=== PATIENT | female | born 1995 ===

== ENCOUNTER 2018-09-02 12:58 | Inpatient (IN) ==
[2018-09-02 13:59] LABS: Apearance,Urine CLEAR (Clear); Bacteria,Urine Occasional /HPF (Few); Bilirubin,Urine Negative (Negative); Blood, Urine Negative (Negative); Glucose,Urine (UA) Negative (Negative); Ketones,Urine Negative (Negative); Mucus,Urine Occasional /LPF (Occasional); Nitrite,Urine Negative (Negative); Protein,Urine Negative; RBC,Urine <1 /HPF (0-4); Squamous Epithelial Cell,Urine Occasional /HPF (0-10); Urine Color Yellow (Yellow); Urine Specific Gravity 1.012 (1.001-1.035); WBC,Urine 1 /HPF (0-6)
[2018-09-02] MEDS ORDERED: TERBUTALINE 1 MG/1 ML VIAL SUBCUT PRN (15:02)
[2018-09-02] MEDS ORDERED: ONDANSETRON 4 MG/2 ML VIAL IV PRN (16:32)
[2018-09-02] MEDS ORDERED: MEPERIDINE 50 MG/1 ML VIAL IM PRN (16:32)
[2018-09-02] MEDS ORDERED: BUTORPHANOL 2 MG/ML VIAL IV PRN (16:32)
[2018-09-02] MEDS ORDERED: CITRIC ACID/SODIUM CITRATE 30 ML UDCUP PO ONE (16:37)
[2018-09-02] MEDS ORDERED: LACTATED RINGERS 250 ML IV PRN (16:37)
[2018-09-02] MEDS ORDERED: LACTATED RINGERS 1,000 ML IV ONE (16:37)
[2018-09-02] MEDS ORDERED: diphenhydrAMINE 50 MG/1 ML VIAL IV PRN ×2 (16:37)
[2018-09-02] MEDS ORDERED: NALOXONE 0.4 MG/ML VIAL IV PRN (16:37)
[2018-09-02] MEDS ORDERED: PROMETHAZINE 25 MG/1 ML VIAL IM ONE (16:37)
[2018-09-02] MEDS ORDERED: FAMOTIDINE 20 MG/2 ML VIAL IV ONE (16:37)
[2018-09-02] MEDS ORDERED: hydrOXYzine HCL 25 MG/1 ML VIAL IM PRN (16:37)
[2018-09-02] MEDS ORDERED: ePHEDrine 50 MG/ML AMP IV PRN (16:37)
[2018-09-02] MEDS ORDERED: fentaNYL 2 MCG/ROPIV 0.2% EPID 100 ML EPIDURAL SCH (17:00)
[2018-09-02] MEDS ORDERED: AMPICILLIN INJ 2,000 MG in SODIUM CHLORIDE 0.9% 100 ML IV ONE (17:00)
[2018-09-02] MEDS ORDERED: LACTATED RINGERS 1,000 ML IV SCH (17:00)
[2018-09-02 17:11] LABS: Basophils % 0.1 % (0.0-0.8); Eosinophils % 0.5 % (0.00-10.9); Hematocrit 30.8 VOL% (35.7-47.0); Hemoglobin 9.5 GM/DL (12.0-16.0); Immature Granulocytes % 0.6 %; Immature Granulocytes Absolute 0.05 #; Lymphocytes # 2.1 10*3/uL (1.4-4.0); Lymphocytes % 23.4 % (21.3-54.2); Mean Corpuscular HGB Conc 30.8 GM/DL (32-36); Mean Corpuscular Hemoglobin 27 PG (27-34); Mean Platelet Volume 10.3 FL (9.6-12.0); Monocytes # 0.8 10*3/uL (0.11-0.8); Monocytes % 8.7 % (1.7-12.7); Neutrophils # 5.8 10*3/uL (1.4-7.4); Neutrophils % 66.7 % (38.7-73.9); Platelet Count 201 T/CUMM (130-400); Red Blood Count 3.58 MC/CUMM (3.8-5.5); Red Cell Distribution Width 13.4 % (9.3-17.3); White Blood Count 8.8 T/CUMM (4-12)
[2018-09-02 17:32] LABS: Alanine Aminotransferase 23 U/L (13-56); Albumin 2.1 G/DL (3.4-5.0); Alkaline Phosphatase 268 U/L (45-117); Aspartate Amino Transferase 20 U/L (0-37); Bilirubin,Total < 0.39 MG/DL (0.2-1.0); Blood Urea Nitrogen 3 MG/DL (7-18); Glucose 89 MG/DL (74-106); Osmolality,Calculated 274.4 MOS/KG (273-304); Potassium 3.1 MMOL/L (3.5-5.1); Sodium 140 MMOL/L (136-145); Total Protein 6.5 G/DL (6.4-8.3)
[2018-09-02] MEDS ORDERED: MEPERIDINE 50 MG/1 ML VIAL IV PRN (22:50)
[2018-09-02] MEDS ORDERED: AMPICILLIN INJ 1,000 MG in SODIUM CHLORIDE 0.9% 100 ML IV SCH (23:00)
[2018-09-02] MEDS ORDERED: miSOPROStol 200 MCG TABLET ONE (23:32)
[2018-09-02] MEDS ORDERED: LIDOCAINE 1% 50 ML VIAL ONE (23:32)
[2018-09-02] MEDS ORDERED: CARBOPROST TROMETHAMINE 250 MCG/ML AMP IM ONE (23:33)
[2018-09-02] MEDS ORDERED: METHYLERGONOVINE 0.2 MG/1 ML AMP ONE (23:33)
[2018-09-02] MEDS ORDERED: OXYTOCIN/LR 20 UNIT/1,000 ML BAG IV ONE (23:33)
[2018-09-02 23:54] LABS: Cord Arterial Blood HCO3 22.4 MMOL/L
[2018-09-02 23:57] LABS: Cord Venous Blood HCO3 23.2 MMOL/L; Cord Venous Blood PCO2 36.4 MMHG; Cord Venous Blood PO2 28.7
[2018-09-03] MEDS ORDERED: BENZOCAINE 20%/MENTHOL 0.5% SPRAY 56 GM CAN TOP PRN (00:04)
[2018-09-03] MEDS ORDERED: ONDANSETRON 4 MG/2 ML VIAL IV PRN (00:04)
[2018-09-03] MEDS ORDERED: DIPH/TET/ACEL PERT BOOSTER VACCINE 0.5 ML VIAL IM ONE (00:04)
[2018-09-03] MEDS ORDERED: BISACODYL 10 MG SUPP RECTAL PRN (00:04)
[2018-09-03] MEDS ORDERED: RHO(D) IMMUNE GLOBULIN 300 MCG SYRINGE IM ONE (00:04)
[2018-09-03] MEDS ORDERED: WITCH HAZEL PADS 100/JAR TOP PRN (00:04)
[2018-09-03] MEDS ORDERED: OXYTOCIN/LR 20 UNIT/1,000 ML BAG IV ONE (00:04)
[2018-09-03] MEDS ORDERED: ACETAMINOPHEN 325 MG TABLET PO PRN (00:04)
[2018-09-03] MEDS ORDERED: MEASLES/MUMPS/RUBELLA VACCINE 0.5 ML VIAL SUBCUT ONE (00:04)
[2018-09-03] MEDS ORDERED: HYDROCORTISONE 2.5% RECTAL CREAM 30 GM TUBE TOP PRN (00:04)
[2018-09-03] MEDS ORDERED: oxyCODONE/ACETAMINOPHEN 5-325 MG TABLET PO PRN ×2 (00:04)
[2018-09-03] MEDS ORDERED: LANOLIN 50% CREAM 0.3 OZ TUBE TOP PRN (00:04)
[2018-09-03 03:58] LABS: Basophils % 0.1 % (0.0-0.8); Eosinophils % 0.2 % (0.00-10.9); Hematocrit 30.3 VOL% (35.7-47.0); Hemoglobin 9.7 GM/DL (12.0-16.0); Immature Granulocytes % 0.4 %; Immature Granulocytes Absolute 0.06 #; Lymphocytes # 1.9 10*3/uL (1.4-4.0); Lymphocytes % 13.6 % (21.3-54.2); Mean Corpuscular Hemoglobin 27 PG (27-34); Mean Corpuscular Volume 83.7 FL (87-102); Mean Platelet Volume 10.1 FL (9.6-12.0); Monocytes # 0.8 10*3/uL (0.11-0.8); Monocytes % 5.6 % (1.7-12.7); Neutrophils # 11.1 10*3/uL (1.4-7.4); Neutrophils % 80.1 % (38.7-73.9); Platelet Count 217 T/CUMM (130-400); Red Blood Count 3.62 MC/CUMM (3.8-5.5); Red Cell Distribution Width 13.4 % (9.3-17.3); White Blood Count 13.8 T/CUMM (4-12)
[2018-09-03] MEDS: IBUPROFEN 800 MG TABLET PO PRN ×2 (07:48→15:27)
[2018-09-03] MEDS: DOCUSATE SODIUM 100 MG CAPSULE PO SCH ×2 (10:39→21:20)
[2018-09-04 07:07] VITALS: BP 110/56
[2018-09-04] MEDS ORDERED: FERROUS SULFATE 325 MG TABLET PO SCH (09:00)
[2018-09-04] MEDS: DOCUSATE SODIUM 100 MG CAPSULE PO SCH (09:37)
== END 2018-09-04 12:25 | disposition home or self-care (01) | DRG 560 ==
LOC: N.LDOUT 12:58 → N.LD 13:00 → N.OB 09-03 11:55
PROVIDERS: ADMIT Pediatrics Neonatal-Perinatal Medicine; ATTEND Obstetrics & Gynecology

== ENCOUNTER 2020-01-12 10:27 | Inpatient (IN) ==
[2020-01-12] MEDS ORDERED: ONDANSETRON 4 MG/2 ML VIAL IV PRN (11:08)
[2020-01-12 11:27] LABS: Basophils % 0.1 % (0.0-0.8); Eosinophils # 0.1 10*3/uL (0.0-0.87); Eosinophils % 1.4 % (0.00-10.9); Hematocrit 31.9 VOL% (35.7-47.0); Hemoglobin 10.2 GM/DL (12.0-16.0); Immature Granulocytes % 0.4 %; Immature Granulocytes Absolute 0.04 #; Lymphocytes # 1.9 10*3/uL (1.4-4.0); Lymphocytes % 20.3 % (21.3-54.2); Mean Corpuscular Volume 84.6 FL (87-102); Mean Platelet Volume 9.9 FL (9.6-12.0); Monocytes % 6.5 % (1.7-12.7); Neutrophils % 71.3 % (38.7-73.9); Platelet Count 158 T/CUMM (130-400); Red Blood Count 3.77 MC/CUMM (3.8-5.5); White Blood Count 9.6 T/CUMM (4-12)
[2020-01-12] MEDS ORDERED: OXYTOCIN/LR 20 UNIT/1,000 ML BAG IV SCH (11:30)
[2020-01-12] MEDS ORDERED: LACTATED RINGERS 1,000 ML IV SCH (11:30)
[2020-01-12 11:55] LABS: Alanine Aminotransferase 19 U/L (13-56); Albumin 2.1 G/DL (3.4-5.0); Alkaline Phosphatase 340 U/L (45-117); Aspartate Amino Transferase 22 U/L (0-37); Bilirubin,Total < 0.39 MG/DL (0.2-1.0); Blood Urea Nitrogen 4 MG/DL (7-18); Calcium 7.9 MG/DL (8.5-10.1); Estimated Glom Filtration Rate 157 ML/MIN; Glucose 85 MG/DL (74-106); Osmolality,Calculated 272.5 MOS/KG (273-304); Total Protein 6.4 G/DL (6.4-8.3)
[2020-01-12] MEDS ORDERED: BUTORPHANOL 1 MG/ML VIAL IV PRN (12:28)
[2020-01-12] MEDS ORDERED: BUTORPHANOL 2 MG/ML VIAL IV PRN (12:28)
[2020-01-12] MEDS ORDERED: miSOPROStoL 200 MCG TABLET ONE (12:45)
[2020-01-12] MEDS ORDERED: TRANEXAMIC ACID 1,000 MG/10 ML VIAL ONE (12:45)
[2020-01-12] MEDS ORDERED: CARBOPROST TROMETHAMINE 250 MCG/ML AMP IM ONE (12:46)
[2020-01-12] MEDS ORDERED: METHYLERGONOVINE 0.2 MG/1 ML AMP ONE (12:46)
[2020-01-12] MEDS ORDERED: LIDOCAINE 1% 50 ML VIAL ONE (13:20)
[2020-01-12 15:28] LABS: Cord Arterial Blood HCO3 20.8 MMOL/L
[2020-01-12 15:32] LABS: Cord Venous Blood HCO3 22.6 MMOL/L; Cord Venous Blood PCO2 40.3 MMHG; Cord Venous Blood PO2 35.2
[2020-01-12] MEDS ORDERED: IBUPROFEN 800 MG TABLET ONE (17:25)
[2020-01-12] MEDS: IBUPROFEN 800 MG TABLET PO PRN ×2 (17:25→23:06)
[2020-01-12] MEDS ORDERED: HYDROCORTISONE 2.5% RECTAL CREAM 30 GM TUBE TOP PRN (17:29)
[2020-01-12] MEDS ORDERED: LANOLIN 50% CREAM 0.3 OZ TUBE TOP PRN (17:29)
[2020-01-12] MEDS ORDERED: oxyCODONE/ACETAMINOPHEN 5-325 MG TABLET PO PRN ×2 (17:29)
[2020-01-12] MEDS ORDERED: WITCH HAZEL PADS 100/JAR TOP PRN (17:29)
[2020-01-12] MEDS ORDERED: BISACODYL 10 MG SUPP RECTAL PRN (17:29)
[2020-01-12] MEDS ORDERED: BENZOCAINE 20%/MENTHOL 0.5% SPRAY 56 GM CAN TOP PRN (17:29)
[2020-01-12] MEDS ORDERED: DIPH/TET/ACEL PERT BOOSTER VACCINE 0.5 ML VIAL IM ONE (17:29)
[2020-01-12] MEDS ORDERED: ACETAMINOPHEN 325 MG TABLET PO PRN (17:29)
[2020-01-12] MEDS: DOCUSATE SODIUM 100 MG CAPSULE PO SCH (22:32)
[2020-01-13 05:20] LABS: Basophils % 0.2 % (0.0-0.8); Eosinophils # 0.1 10*3/uL (0.0-0.87); Eosinophils % 1.3 % (0.00-10.9); Hematocrit 27.9 VOL% (35.7-47.0); Immature Granulocytes % 0.5 %; Immature Granulocytes Absolute 0.05 #; Lymphocytes # 2.4 10*3/uL (1.4-4.0); Lymphocytes % 24.9 % (21.3-54.2); Mean Corpuscular HGB Conc 32.3 GM/DL (32-36); Mean Corpuscular Volume 83.5 FL (87-102); Mean Platelet Volume 10.2 FL (9.6-12.0); Monocytes % 8.3 % (1.7-12.7); Neutrophils % 64.8 % (38.7-73.9); Platelet Count 142 T/CUMM (130-400); Red Blood Count 3.34 MC/CUMM (3.8-5.5); Red Cell Distribution Width 13.9 % (9.3-17.3); White Blood Count 9.6 T/CUMM (4-12)
[2020-01-13] MEDS: DOCUSATE SODIUM 100 MG CAPSULE PO SCH ×2 (09:02→20:49)
[2020-01-14] MEDS: IBUPROFEN 800 MG TABLET PO PRN (04:28)
[2020-01-14 08:28] VITALS: BP 122/76
[2020-01-14] MEDS: DOCUSATE SODIUM 100 MG CAPSULE PO SCH (08:48)
== END 2020-01-14 13:30 | disposition home or self-care (01) | DRG 560 ==
LOC: N.LD 10:27 → N.OB 17:23
PROVIDERS: ADMIT Obstetrics & Gynecology; ATTEND Obstetrics & Gynecology

== ENCOUNTER 2022-09-06 21:56 | Inpatient (IN) ==
[2022-09-06 22:37] LABS: Bacteria,Urine Occasional /HPF (Few); Bilirubin,Urine Negative (Negative); Blood, Urine Moderate mg/dL (Negative); Glucose,Urine (UA) Negative (Negative); Ketones,Urine Negative (Negative); Mucus,Urine Occasional /LPF (Occasional); Nitrite,Urine Negative (Negative); Protein,Urine Negative (Negative); RBC,Urine 2 /HPF (0-4); Squamous Epithelial Cell,Urine Occasional /HPF (0-10); Urine Appearance Clear (Clear); Urine Color Yellow (Yellow); Urine Specific Gravity 1.015 (1.001-1.035); Urine Urobilinogen 0.2 eU/dL (<2.0); Urine pH 7.5 (4.5-8.0)
[2022-09-06] MEDS ORDERED: TERBUTALINE 1 MG/1 ML VIAL SUBCUT ONE (23:12)
[2022-09-06] MEDS ORDERED: PROMETHAZINE 25 MG/1 ML VIAL IM ONE (23:12)
[2022-09-06] MEDS ORDERED: MEPERIDINE 50 MG/1 ML VIAL IM ONE (23:12)
[2022-09-06] MEDS ORDERED: LACTATED RINGERS 1,000 ML IV ONE (23:12)
[2022-09-07] MEDS ORDERED: LACTATED RINGERS 500 ML IV PRN (01:15)
[2022-09-07] MEDS ORDERED: BUTORPHANOL 2 MG/ML VIAL IV PRN (01:15)
[2022-09-07] MEDS ORDERED: CARBOPROST TROMETHAMINE 250 MCG/ML AMP IM PRN (01:15)
[2022-09-07] MEDS ORDERED: OXYTOCIN/LR 20 UNIT/1,000 ML BAG IV ONE ×2 (01:15→14:06)
[2022-09-07] MEDS ORDERED: miSOPROStoL 200 MCG TABLET RECTAL PRN (01:15)
[2022-09-07] MEDS ORDERED: METHYLERGONOVINE 0.2 MG/1 ML AMP IM PRN (01:15)
[2022-09-07] MEDS ORDERED: ONDANSETRON 4 MG/2 ML VIAL IV PRN (01:15)
[2022-09-07] MEDS ORDERED: TRANEXAMIC ACID 1,000 MG in SODIUM CHLORIDE 0.9% 100 ML IV PRN (01:15)
[2022-09-07] MEDS: LACTATED RINGERS 1,000 ML IV SCH ×2 (01:36→11:09)
[2022-09-07] MEDS: CLINDAMYCIN INJ 900 MG/50 ML PREMIX IV SCH ×2 (01:36→09:22)
[2022-09-07 01:53] LABS: Basophils % 0.1 % (0.0-0.8); Eosinophils % 0.4 % (0.00-10.9); Hematocrit 32.7 VOL% (35.7-47.0); Hemoglobin 10.6 GM/DL (12.0-16.0); Immature Granulocytes % 0.4 %; Immature Granulocytes Absolute 0.03 #; Lymphocytes # 2.2 10*3/uL (1.4-4.0); Lymphocytes % 27.7 % (21.3-54.2); Mean Corpuscular HGB Conc 32.4 GM/DL (32-36); Mean Corpuscular Volume 88.1 FL (87-102); Mean Platelet Volume 10.2 FL (9.6-12.0); Monocytes # 0.5 10*3/uL (0.11-0.8); Monocytes % 5.8 % (1.7-12.7); Neutrophils % 65.6 % (38.7-73.9); Platelet Count 145 T/CUMM (130-400); Red Blood Count 3.71 MC/CUMM (3.8-5.5); Red Cell Distribution Width 14.5 % (9.3-17.3); White Blood Count 7.99 T/CUMM (4-12)
[2022-09-07] MEDS ORDERED: OXYTOCIN/LR 30 UNIT/1,000 ML BAG IV ONE (02:00)
[2022-09-07 02:11] LABS: Albumin 2.3 G/DL (3.4-5.0); Bilirubin,Total 0.4 MG/DL (0.20-1.00); Calcium 8.2 MG/DL (8.5-10.1); Osmolality,Calculated 270.7 MOS/KG (273-304); Total Protein 6.8 G/DL (6.4-8.2)
[2022-09-07] MEDS ORDERED: diphenhydrAMINE 50 MG/1 ML VIAL IV ONE (02:45)
[2022-09-07 06:58] LABS: HIV Antigen/Antibody Result Nonreactive (Nonreactive); Hepatitis B Surface Ag Quant < 0.10 Index; Hepatitis B Surface Ag Result Non-Reactive (NonReactive); Rubella Antibody IgG Result Reactive (NonReactive)
[2022-09-07] MEDS ORDERED: OXYTOCIN/LR 20 UNIT/1,000 ML BAG IV SCH (09:00)
[2022-09-07 11:53] LABS: Cord Arterial Blood HCO3 19.4 MMOL/L
[2022-09-07 11:55] LABS: Cord Venous Blood HCO3 21.7 MMOL/L; Cord Venous Blood PCO2 41.6 MMHG; Cord Venous Blood PO2 29.1
[2022-09-07] MEDS ORDERED: WITCH HAZEL PADS 100/JAR TOP PRN (14:06)
[2022-09-07] MEDS ORDERED: RHO(D) IMMUNE GLOBULIN 300 MCG SYRINGE IM ONE (14:06)
[2022-09-07] MEDS ORDERED: ACETAMINOPHEN 325 MG TABLET PO PRN (14:06)
[2022-09-07] MEDS ORDERED: HYDROCORTISONE 2.5% RECTAL CREAM 30 GM TUBE TOP PRN (14:06)
[2022-09-07] MEDS ORDERED: DIPH/TET/ACEL PERT BOOSTER VACCINE 0.5 ML VIAL IM ONE (14:06)
[2022-09-07] MEDS ORDERED: oxyCODONE/ACETAMINOPHEN 5-325 MG TABLET PO PRN ×2 (14:06)
[2022-09-07] MEDS ORDERED: BISACODYL 10 MG SUPP RECTAL PRN (14:06)
[2022-09-07] MEDS ORDERED: BENZOCAINE 20%/MENTHOL 0.5% SPRAY 56 GM CAN TOP PRN (14:06)
[2022-09-07] MEDS ORDERED: MEASLES/MUMPS/RUBELLA VACCINE 0.5 ML VIAL SUBCUT ONE (14:06)
[2022-09-07] MEDS ORDERED: LANOLIN 50% CREAM 0.3 OZ TUBE TOP PRN (14:06)
[2022-09-07] MEDS: IBUPROFEN 800 MG TABLET PO PRN (18:59)
[2022-09-07] MEDS: DOCUSATE SODIUM 100 MG CAPSULE PO SCH (20:49)
[2022-09-08] MEDS ORDERED: diphenhydrAMINE CAP 25 MG CAPSULE PO PRN (02:32)
[2022-09-08 05:51] LABS: Basophils % 0.2 % (0.0-0.8); Eosinophils # 0.1 10*3/uL (0.0-0.87); Eosinophils % 1.4 % (0.00-10.9); Hemoglobin 8.5 GM/DL (12.0-16.0); Immature Granulocytes % 0.5 %; Immature Granulocytes Absolute 0.03 #; Lymphocytes # 2.2 10*3/uL (1.4-4.0); Lymphocytes % 33.4 % (21.3-54.2); Mean Corpuscular HGB Conc 32.7 GM/DL (32-36); Mean Platelet Volume 10.4 FL (9.6-12.0); Monocytes # 0.4 10*3/uL (0.11-0.8); Monocytes % 6.1 % (1.7-12.7); Neutrophils % 58.4 % (38.7-73.9); Platelet Count 151 T/CUMM (130-400); Red Blood Count 2.92 MC/CUMM (3.8-5.5); Red Cell Distribution Width 14.5 % (9.3-17.3); White Blood Count 6.61 T/CUMM (4-12)
[2022-09-08] MEDS: DOCUSATE SODIUM 100 MG CAPSULE PO SCH ×2 (09:43→20:05)
[2022-09-08] MEDS: IBUPROFEN 800 MG TABLET PO PRN ×2 (12:53→20:05)
[2022-09-08] MEDS: POTASSIUM CHLORIDE 20 MEQ TABLET PO PRN ×3 (20:05→23:47)
[2022-09-09] MEDS: POTASSIUM CHLORIDE 20 MEQ TABLET PO PRN (01:49)
[2022-09-09 08:05] VITALS: BP 122/67
[2022-09-09] MEDS: DOCUSATE SODIUM 100 MG CAPSULE PO SCH (08:58)
[2022-09-09] MEDS ORDERED: NITROFURANTOIN MACRO/MONO 100 MG CAPSULE PO SCH (12:00)
[2022-09-09] MEDS ORDERED: CIPROFLOXACIN 250 MG TABLET PO ONE (12:00)
== END 2022-09-09 13:10 | disposition home or self-care (01) | DRG 560 ==
LOC: N.LDOUT 21:56 → N.LD 21:59 → N.OB 09-07 13:51
PROVIDERS: ADMIT Obstetrics & Gynecology; ATTEND Obstetrics & Gynecology